=== PATIENT | male | born 1965 | race Caucasian/White ===

== ENCOUNTER 2022-09-09 17:15 | Emergency (ER) | payer SELFPAY ==
[~2022-09-09] VITALS: Ht 182 cm; Wt 107.0 kg
[2022-09-09] MEDS ORDERED: TETANUS,DIPTH,PERTUSS P/F (BOOSTRIX) 0.5 ML VIAL IM ONE (17:45)
[2022-09-09] MEDS ORDERED: LIDOCAINE/EPI 2% 1:100,00 (XYLOCAINE) 20 ML VIAL INJ ONE (17:45)
--- NOTE | 2022-09-09 17:46 | ED General ---
General Chief Complaint: Facial Problems Stated Complaint: FACIAL INJ Nursing Triage Note: PT AMB TO ROOM 5 PT CO OF LACERATION TO FACE X2 FROM PIECE OF METAL THAT HIT FACE. Source of Information: Patient Exam Limitations: No Limitations History of Present Illness Date Seen by Provider: Sep 09, 2022 Time Seen by Provider: 17:30 Initial Comments Patient was trying to straighten out a piece of bent metal at home when the metal popped up striking him in the forehead. He now has a laceration over the right forehead left eyebrow. No loss of consciousness. No anticoagulant use. No dizziness no vision changes. Tetanus is not up-to-date. Timing/Duration: 1-3 Hours Severity: Moderate Associated Systoms: Denies Symptoms Allergies and Home Medications Allergies Coded Allergies: No Known Drug Allergies (Unverified , 09/09/22) Patient Home Medication List Home Medication List Reviewed: Yes Review of Systems Review of Systems Constitutional: see HPI EENTM: see HPI Respiratory: see HPI Cardiovascular: no symptoms reported Genitourinary: no symptoms reported Musculoskeletal: no symptoms reported Skin: no symptoms reported Psychiatric/Neurological: No Symptoms Reported Past Phldbju-Mxtahu-Mqioje Hx Patient Social History Tobacco Use?: No Substance use?: No Alcohol Use?: No Pt feels they are or have been: No Past Medical History Surgery/Hospitalization HX: CATERACT SURG Physical Exam Vital Signs Vital Signs - First Documented 09/09/22 17:25 Temp 36.5 Pulse 73 Resp 18 B/P (MAP) 139/84 (102) Pulse Ox 93 Capillary Refill : Less Than 3 Seconds Height, Weight, BMI Height: '" Weight: lbs. oz. kg; 32.00 BMI Method: General Appearance: No Apparent Distress, WD/WN Eyes: Bilateral Eye Normal Inspection, Bilateral Eye PERRL, Bilateral Eye EOMI HEENT: PERRL/EOMI, TMs Normal, Normal ENT Inspection, Other (2 cm laceration right side of the forehead depth to the subcutaneous tissue. 3 cm laceration overlying the left eyebrow laterally. No globe injury.) Neck: Full Range of Motion, Normal Inspection Respiratory: No Accessory Muscle Use, No Respiratory Distress Extremity: Normal Capillary Refill, Normal Inspection Neurologic/Psychiatric: Alert, Oriented x3 Skin: Normal Color, Warm/Dry Procedures/Interventions Wound Location: Face Wound Length (cm): 5 Wound's Depth, Shape: linear, sub Q Wound Explored: clean Irrigated w/ Saline (ccs): 30 Betadine Prep?: No Anesthesia: Lidocaine w/ Epi Volume Anesthetic (ccs): 4 Suture: Prolene Suture Size: 5-0 Number of Sutures: 6 Layer Closure?: 1 Number Deep Layer Sutures: 0 Progress Simple interrupted sutures to the right forehead laceration. Continuous suture to the left eyebrow. Progress/Results/Core Measures Suspected Sepsis SIRS Temperature: Pulse: 73 Respiratory Rate: 18 Blood Pressure 139 /84 Mean: 102 Results/Orders My Orders Orders - SIMON DALE APRN Ct Head Wo (09/09/22 17:43) Lidocaine/Epi 2% 1:100,000 (Xylocaine/Ep (09/09/22 17:45) Dipht,Pertuss(Acell),Tet Adult (Boostrix (09/09/22 17:45) Lidocaine/Epi 1% 1:100,000 (Xylocaine /E (09/09/22 17:50) Medications Given in ED Current Medications Medications Dose Ordered Sig/Tanja Route Start Time Stop Time Status Last Admin Dose Admin Diphtheria/ Tetanus/Acell Pertussis 0.5 ml ONCE ONCE IM 09/09/22 17:45 09/09/22 17:46 DC 09/09/22 17:53 0.5 ML Lidocaine/ Epinephrine 20 ml STK-MED ONCE .ROUTE 09/09/22 17:50 09/09/22 17:54 DC 09/09/22 17:54 10 ML Vital Signs/I&O 09/09/22 17:25 Temp 36.5 Pulse 73 Resp 18 B/P (MAP) 139/84 (102) Pulse Ox 93 Capillary Refill : Less Than 3 Seconds Blood Pressure Mean: 102 Departure Communication (Admissions) Discussed the CT findings with him no intracranial hemorrhage but there is maxillary sinus disease. He does report nasal congestion and sneezing. I will have him use some [id number] Flonase and give a prescription for Keflex 500 mg p.o. 3 times daily handwritten. Impression Primary Impression: Forehead laceration Additional Impression: Maxillary sinusitis Disposition: HOME, SELF-CARE Condition: Stable Departure-Patient Inst. Decision time for Depature: 18:35 Referrals: UNKNOWN (PCP) Primary Care Physician Patient Instructions: Laceration Repair With Stitches ED Add. Discharge Instructions: 1. I have handwritten a prescription for the antibiotic called Keflex. 1 tablet 3 times a day for 7 days. This can be filled at any pharmacy. Return to ER for any concerns. Otherwise return to ER in 5 to 7 days whenever it is convenient for you to have the stitches removed. You can shower starting tonight letting water run over this. All discharge instructions reviewed with patient and/or family. Voiced understanding. SIMON DALE [employer] Sep 09, 2022 17:46
[2022-09-09] MEDS ORDERED: LIDOCAINE/EPI 1%-1:100,000 (XYLOCAINE) 20ML ONE (17:50)
--- NOTE | 2022-09-09 17:58 | Diagnostic Imaging Report ---
PROCEDURE: CT head without contrast. TECHNIQUE: Multiple contiguous axial images were obtained through the brain without the use of intravenous contrast. Auto Exposure Controls were utilized during the CT exam to meet ALARA standards for radiation dose reduction. INDICATION: Head injury with pain. FINDINGS: The ventricles and sulci are within normal limits. There is no hydrocephalus. There is no midline shift. There is no mass, hemorrhage or extra-axial fluid collection. There is bilateral maxillary sinus disease. Remaining sinuses and mastoid air cells are clear. IMPRESSION: 1. No acute intracranial abnormality. 2. Bilateral maxillary sinus disease. Dictated by: Dictated on workstation # [id number]
[2022-09-09 18:44] VITALS: BP 130/74
== END 2022-09-09 18:45 | disposition home or self-care (01) ==
LOC: ER 17:18
DX: S01.81XA Laceration without foreign body of other part of head, initial encounter (principal); S01.112A Laceration without foreign body of left eyelid and periocular area, initial encounter; J32.0 Chronic maxillary sinusitis; Z23 Encounter for immunization; W20.8XXA Other cause of strike by thrown, projected or falling object, initial encounter; Y92.009 Unspecified place in unspecified non-institutional (private) residence as the place of occurrence of the external cause
CPT/HCPCS: 12013; 70450; 90715